=== PATIENT | female | born 1975 | race Two or more races ===

== ENCOUNTER 2019-04-12 09:03 | Day surgery (SDC) | payer MEDICAID ==
[2019-04-10 10:00] LABS: Basophils # (auto) 0.1 uL; Basophils % (auto) 0.8 % (0.0-2.0); Eosinophils # (auto) 0.1 uL; Eosinophils % (auto) 0.8 % (0.0-7.0); Hemoglobin 13.3 g/dL (12.2-16.2); Lymphocytes # (auto) 3.2 uL; Lymphocytes % (auto) 40.7 % (10.0-50.0); Mean Corpuscular Hemoglobin 29.1 pg (28.0-32.0); Mean Corpuscular Hgb Conc. 33.3 g/dL (32.0-36.0); Mean Corpuscular Volume 87.2 fL (80.0-100.0); Monocytes # (auto) 0.5 uL; Monocytes % (auto) 6.4 % (0.0-12.0); Neutrophils # (auto) 4.1 uL; Neutrophils % (auto) 51.3 % (37.0-80.0); Nucleated Red Blood Cells % 0.1 %; Platelet Count (auto) 286 10^3/uL (140-450); Red Blood Cells 4.58 10^6/uL (4.0-5.20); Red Cell Distribution Width 13.1 % (11.8-14.3); White Blood Cell 7.9 10^3/uL (4.4-10.8)
[2019-04-10 10:16] LABS: INR 0.96 (0.9-1.15); Partial Thromboplastin Time 25.9 sec (23.64-32.05)
[2019-04-10 10:31] LABS: Potassium 3.8 mmol/L (3.5-5.1)
[2019-04-10 10:41] LABS: Albumin 3.6 g/dL (3.4-5.0); BUN/Creatinine Ratio 10.8; Bilirubin, Total 0.4 mg/dL (0.2-1.0); Calcium 9.1 mg/dL (8.5-10.1); Total Protein 8.1 g/dL (6.4-8.2)
[2019-04-11 12:54] LABS: Urine WBC None Seen /hpf (0 - 5)
[2019-04-11 13:00] LABS: Urine Bacteria NONE SEEN /hpf (None Seen); Urine Blood Negative /uL (Negative)
[~2019-04-12] VITALS: Ht 152.4 cm; Wt 96.6 kg
[~2019-04-12 09:03] MED LIST: FLUO20CA19 PO; LISI-285 PO; METH20TA PO; SIMV-13 PO; SODI500S PO
[2019-04-12] MEDS ORDERED: ROPIVACAINE 0.5% (5MG/ML) 20ML AMPULE IJ ONE (11:06)
[2019-04-12] MEDS ORDERED: NEOMYCIN-BACITRACIN-POLYM 15GM TOP OINT TOP ONE (11:06)
[2019-04-12] MEDS ORDERED: MIDAZOLAM HCL 1MG/1ML-2 ML VIAL ONE (11:16)
[2019-04-12] MEDS ORDERED: LIDOCAINE 2% (LOCAL ANESTH.) PF 5ml SDV ONE (11:16)
[2019-04-12] MEDS ORDERED: PROPOFOL 10 MG/ML 20 ML IV ONE (11:16)
[2019-04-12] MEDS ORDERED: METOCLOPRAMIDE HCL 5MG/ml INJ 2ml VIAL ONE (11:16)
[2019-04-12] MEDS ORDERED: ceFAZolin 1GM/50ML 50 ML IV ONE (11:17)
[2019-04-12] MEDS ORDERED: LIDOCAINE HCL 2% TOP JELLY 5ML TOP ONE (11:17)
[2019-04-12] MEDS ORDERED: ONDANSETRON HCL 4 MG/2 ML VIAL IV PRN (11:30)
[2019-04-12] MEDS ORDERED: HYDROmorphone HCL 2 MG/ML VL IV PRN ×2 (11:30)
[2019-04-12] MEDS ORDERED: NALOXONE HCL 0.4 MG/ML VIAL IV PRN (11:30)
[2019-04-12] MEDS ORDERED: fentaNYL CITRATE 100 MCG/2 ML VL ONE (11:32)
[2019-04-12] MEDS ORDERED: ePHEDrine SULFATE 50 MG/ML AMP ONE (11:36)
[2019-04-12] MEDS ORDERED: SODIUM CHLORIDE LOCK 10 ML ONE (11:36)
[2019-04-12 12:47] VITALS: BP 110/77
== END 2019-04-12 13:02 | disposition home or self-care (01) ==
LOC: SUR 09:03
PROVIDERS: ATTEND Podiatrist Foot & Ankle Surgery
DX: S86.311A Strain of muscle(s) and tendon(s) of peroneal muscle group at lower leg level, right leg, initial encounter (principal); M19.90 Unspecified osteoarthritis, unspecified site; I10 Essential (primary) hypertension; E66.9 Obesity, unspecified; F32.9 Major depressive disorder, single episode, unspecified; G47.33 Obstructive sleep apnea (adult) (pediatric); Z68.28 Body mass index [BMI] 28.0-28.9, adult; Z87.891 Personal history of nicotine dependence; Z79.899 Other long term (current) drug therapy; X58.XXXA Exposure to other specified factors, initial encounter; Y93.89 Activity, other specified; Y92.89 Other specified places as the place of occurrence of the external cause; Y99.8 Other external cause status
CPT/HCPCS: 27658; 36415; 71045; 80053; 81001; 84702; 85025; 85610; 85730; J0690; J1170; J2001; J2250; J2405; J2704; J2765; J2795; J3010